=== PATIENT | male | born 1985 | race Caucasian/White ===

== ENCOUNTER 2016-07-04 11:02 | Emergency (ER) | payer OTHER ==
--- NOTE | 2016-07-04 11:33 | EDPHY ---
H & P Smoking Status: Never smoked Time Seen by Provider: 07/04/16 11:11 HPI/ROS: CHIEF COMPLAINT: Right ankle injury HISTORY OF PRESENT ILLNESS: 31-year-old male presents to the emergency department by ambulance with right ankle injury. [place] and fell injuring his right ankle. He did not hit his head or lose consciousness. Complains of isolated pain to the right ankle. Denies pain in the right knee or right hip. Denies injury to the left lower extremity. Denies injury to the upper extremities. Denies headache. Denies neck or back pain. REVIEW OF SYSTEMS: Constitutional: No fever, no chills. Eyes: No double or blurry vision. ENT: No sore throat. Respiratory: No cough, no shortness of breath. Cardiac: No chest pain. Gastrointestinal: No abdominal pain, vomiting or diarrhea. Genitourinary: No dysuria. Musculoskeletal: No neck or back pain. Skin: No rashes. Neurological: No headache. (Reyna Winklerrina M) Past Medical/Surgical History: Negative (Gail Winkler M) Social History: Single (Gail Winkler M) Physical Exam: General Appearance: Alert, no distress. No visible signs of trauma to his head. He is mentating normally and answering questions appropriately. Eyes: Pupils equal and round. Extraocular motions are all intact. ENT: Mouth: Mucous membranes moist. Respiratory: No wheezing, rhonchi, or rales, lungs are clear to auscultation. Cardiovascular: Regular rate and rhythm. Gastrointestinal: Abdomen is soft and nontender, no masses, no rebound or guarding, bowel sounds normal. Neurological: Alert and oriented x 3, cranial nerves II through XII grossly intact Skin: Warm and dry, no rashes. Musculoskeletal: Nontender to palpate along the cervical, thoracic or lumbar spine. Neck is supple. Extremities: Obvious deformity noted to the right ankle. He is neurovascularly intact. Strong dorsalis pedis pulse on the dorsal aspect of the right foot. Unable to dorsi and plantar flex. He has normal sensation to light touch with normal 2 point discrimination. Right knee is nontender. Left lower extremities on injured. Upper extremities bilaterally are on injured. Psychiatric: Patient is oriented X 3, there is no agitation. (PetersonGail M) Constitutional: Initial Vital Signs Temperature (C) 36.7 C 07/04/16 11:02 Heart Rate 95 07/04/16 11:02 Respiratory Rate 18 07/04/16 11:02 Blood Pressure 182/97 H 07/04/16 11:02 O2 Sat (%) 98 07/04/16 11:02 O2 Delivery Mode Room Air O2 (L/minute) 2 Allergies/Adverse Reactions: No Known Allergies Allergy (Unverified 07/04/16 11:17) Home Medications: Medication Instructions Recorded oxyCODONE/APAP 325 [Percocet 1 - 2 tab PO Q4-6PRN PRN #15 tab 07/04/16 5/325] Medical Decision Making - Diagnostics Imaging: X-rays of the right ankle reveal trimalleolar fracture dislocation. This is reviewed by myself the PAC system as well as by the radiologist. Post reduction x-rays of the right ankle reveals subtotal relocation of the trimalleolar fracture posterior dislocation. This is reviewed by myself the PAC system as well as by the radiologist. (Gail Winkler) Procedures: Procedure: Dislocation reduction. Indication: Reduction right trimalleolar fracture dislocation The right ankle trimalleolar fracture dislocation was reduced using traction without complications. Post reduction the patient's neurovascular exam is normal. Post reduction x-ray demonstrates reduction of the joint to the non- anatomic position but improved. The procedure was performed by myself. The patient was then placed into a three-way a posterior Ortho Glass splint. The patient was noted to be neurologically intact after splint placement. (Raymond Siu) ED Course/Re-evaluation: 31-year-old male presents with right ankle fracture dislocation. See procedure note by Dr. Raymond Siu. A splint was placed in the patient was given crutches and will be nonweightbearing until follow-up with Dr. Donal Jeffery tomorrow in the office to discuss surgical repair. (Gail Winkler) Differential Diagnosis: Differential diagnosis considered includes fracture, sprain, dislocation, neurovascular injury (Raymond Siu) Including but not limited to fracture, dislocation, contusion, sprain, compartment syndrome (Gail Winkler) Other Provider: Physician co-management documentation I evaluated and participated in the management of the patient. I also evaluated the patient independently. My co-signature indicates that I have reviewed this chart and I agree with the findings and plan of care as documented. My personal H&P findings include: Patient presents to the ED with pain and deformity to his right ankle after he slipped and fell while hiking [place] icy [place]. The patient was brought in by paramedics. He did require a slightly prolonged extrication by the wound rescue group. The patient denies any numbness or weakness in the right leg. He denies additional injury. Patient reports 9/10 pain. PHYSICAL EXAMINATION General Appearance: Alert, no distress Head: Atraumatic Eyes: Pupils equal, round, reactive ENT, Mouth: No hemotympanum, no oral trauma Neck: Nontender, trachea midline Respiratory: No chest wall tender, subcutaneous air, lungs clear bilaterally Cardiovascular: Regular rate and rhythm Abdomen: Abdomen is soft and nontender, pelvis stable Skin: No lacerations, No abrasion Back: No midline T/L/S pain Extremities: Deformity, tenderness and swelling noted to the right ankle, 2+ dorsalis pedis and posterior tibial pulses Neurological: Sensation intact to light touch in the right lower extremity The patient had a fracture dislocation of his right ankle confirmed on x-ray. The patient received 200 mcg of IV fentanyl. I reviewed the patient's pre and post reduction films with Dr. Donal Jeffery who independently visualized x-rays. The patient is noted to have a subtotal reduction of his tibial talar joint. Dr. Jeffery will see the patient in his office tomorrow to discuss surgical repair. (Raymond Siu) - Data Points Medications Given: Discontinued Medications Fentanyl (Sublimaze) 100 mcg IVP EDNOW ONE Stop: 07/04/16 11:58 Last Admin: 07/04/16 12:07 Dose: 100 mcg Fentanyl (Sublimaze) 100 mcg IVP EDNOW ONE Stop: 07/04/16 11:59 Last Admin: 07/04/16 12:24 Dose: 100 mcg Hydromorphone HCl (Dilaudid) 0.5 mg IVP EDNOW ONE Stop: 07/04/16 13:05 Last Admin: 07/04/16 13:13 Dose: 0.5 mg Sodium Chloride (Ns) 1,000 mls @ 0 mls/hr IV ONCE ONE PRN Reason: Wide Open Stop: 07/04/16 11:59 Last Admin: 07/04/16 12:07 Dose: 1,000 mls Ondansetron HCl (Zofran) 4 mg IVP EDNOW ONE Stop: 07/04/16 11:58 Last Admin: 07/04/16 12:08 Dose: 4 mg Departure - Departure Disposition: Home, Routine, Self-Care Clinical Impression: Closed right ankle fracture Condition: Good Instructions: Ankle Fracture (ED) Additional Instructions: Ibuprofen 600mg every 8 hours for pain as directed. Percocet for severe pain as directed. Nonweightbearing, use crutches. Follow up with orthopedic surgeon tomorrow. Referrals: Donal Jeffery MD [Medical Doctor] - 1 day without fail (Orthopedic surgeon on-call Call today to arrange follow-up appointment to be seen tomorrow in the office.) Prescriptions: oxyCODONE/APAP 5/325 [Percocet 5/325] 1 - 2 tab PO Q4-6PRN PRN #15 tab PRN Reason: For Moderate To Severe Pain
[2016-07-04] MEDS ORDERED: fentaNYL 100 MCG/2 ML INJ IVP ONE ×2 (11:57→11:58)
[2016-07-04] MEDS ORDERED: ONDANSETRON 4 MG/2 ML VIAL IVP ONE (11:57)
[2016-07-04] MEDS ORDERED: NS 1,000 ML IV ONE (11:58)
--- NOTE | 2016-07-04 12:09 | DX ---
Right ankle 3 views at 1137 hours History: Tripped while hiking this morning, pain. Comparison: None available. Findings: Trimalleolar fracture dislocation is present, with posterior dislocation of the talus relat anushka to the tibia. There is a mildly comminuted segmental fracture of the distal fibular diaphysis wit h moderate dorsal angulation and one shaft width posterior displacement. There is mild posterior disp lacement of a posterior malleolar fracture. There is mild posterior displacement of a medial malleola r fracture. Impression: Trimalleolar fracture dislocation.
[2016-07-04] MEDS ORDERED: HYDROmorphONE/DILAUDID 1 MG/ML SYR ONE (12:57)
[2016-07-04] MEDS ORDERED: HYDROmorphONE/DILAUDID 1 MG/ML SYR IVP ONE (13:04)
--- NOTE | 2016-07-04 13:08 | DX ---
Right Ankle, 2 portable views, 12:34 History: Post casting of fracture dislocation which occurred during fall while hiking Comparison: Initial exam at 11:37 Findings: There is persistent, but more mild posterior dislocation of the talar dome, which currently has its apex overlying the posterior margin of the distal tibial articular margin. There is signific antly less posterior angulation of the distal fibular shaft. Overlying cast material obscures fine rand ny detail. Impression: Subtotal reduction of the posterior ankle dislocation.
[2016-07-04 13:15] VITALS: BP 128/72; PULSE 70; RESP 14; TEMP 99; O2SAT 94
== END 2016-07-04 13:24 | disposition home or self-care (01) ==
PROC: 0QSGXZZ Reposition Right Tibia, External Approach (ICD-10-PCS; principal; 2016-07-04)
DX: S82.851A Displaced trimalleolar fracture of right lower leg, initial encounter for closed fracture (principal); W00.0XXA Fall on same level due to ice and snow, initial encounter; Y99.8 Other external cause status; Y93.01 Activity, walking, marching and hiking
CPT/HCPCS: 96374; J1170; J2405; J3010